=== PATIENT | male | born 1965 | race Caucasian/White ===

== ENCOUNTER 2016-09-17 13:38 | Inpatient (IN) | payer OTHER, SELFPAY ==
[~2016-09-17] VITALS: Ht 188 cm; Wt 128.0 kg
--- NOTE | ~2016-09-17 | TXPLANREV ---
"PATIENT: RED MUSTAFA | | [facility] UNIT #: [id number] | [address] AGE/SEX: 50 M : 61 | [address] | [place] [address] ADMIT/REG DATE: 09/17/16 | [facility] | Treatment Plan/Staffing Review Date: 01 OCT 2016 Treatment plan was reviewed and determined appropriate as written: TREATMENT PLAN IS APPROPRIATE WRITTEN. Treatment plan was reviewed and the following changes/addition/deletions are necessary: TREATMENT PLANS CREATED TO FOCUS ON RELAPSE/FAMILY OF ORIGIN ISSUES AND GUILT AND SHAME FOR PAIN CLIENT HAS CAUSED HIS . Discharge plans were reviewed and determined appropriate as previously documented: NO DISCHARGE PLANS HAVE BEEN DOCUMENTED. Discharge plans were reviewed and determined to be as follows: TENTATIVE DISCHARGE DATE IS 15 OCT 2016. Other pertinent issues discussed during this staffing review include: CLIENT APPEARS TO BE LEARNING MORE ABOUT ADDICTION AND IS MORE REALISTIC ABOUT THE NEGATIVE CONSEQUENCES IT HAS CAUSED IN HIS LIFE AND HIS MARRIAGE. CLIENT HAS SUBMITTED HIS STEP ONE, STINKIN THINKIN AND BOUNDARY PACKETS, BUT HAS NOT PROCESSED THEM WITH STAFF. CLIENT WILL BE WORKING ON RELAPSE AND FEELINGS LETTERS. HIS IS HERE TODAY AND THEY ARE ATTENDING FAMILY EDUCATION CLASSES. Staff Present: CARMITA BRANCH PRIMARY COUNSELOR: ADDIE HUDSON [facility] Client Signature Counselor Signature Date Time "
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
--- NOTE | ~2016-09-17 | TXPLANREV ---
"PATIENT: RED MUSTAFA | | [facility] UNIT #: [id number] | [address] AGE/SEX: 50 M : 61 | [address] | [place] [phone] ADMIT/REG DATE: 09/17/16 | [facility] | Treatment Plan/Staffing Review Date: 08 OCT 2016 Treatment plan was reviewed and determined appropriate as written: TREATMENT PLAN IS APPROPRIATE WRITTEN. Treatment plan was reviewed and the following changes/addition/deletions are necessary: ADDITIONAL TX PLANS WERE CREATED TO ADDRESS FEELINGS, RELAPSE AND UNRESOLVED HURT AND ANGER. Discharge plans were reviewed and determined appropriate as previously documented: YES, APPROPRIATE PREVIOUSLY DOCUMENTED. Discharge plans were reviewed and determined to be as follows: CLIENT WILL DISCHARGE 10/15/16 AND BE REFERRED BACK TO [facility]. Other pertinent issues discussed during this staffing review include: CLIENT WORKING ON FEELINGS LETTERS, MY CHANGE PLAN AND RELAPSE WARNING SIGNS. HIS WILL BE HERE TONIGHT TO PROCESS FEELINGS LETTERS. CLIENT'S NEXT APPOINTMENT AT [facility] IS 10/17 AT 10A. Staff Present: MARILEE AMBROCIO PRIMARY COUNSELOR: ADDIE HUDSON [facility] Client Signature Counselor Signature Date Time "
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
--- NOTE | ~2016-09-17 | INDIVTXPLN ---
"PATIENT: RUDDY MUSTAFA | | [facility] UNIT #: [id number] | [address] AGE/SEX: 50 M : 61 | [address] | [place] [address] ADMIT/REG DATE: 09/17/16 | ROOM: [facility] LOC: ADTC | ADTC | Individualized Treatment Plan Date: 08 OCT 2016 Problem Statement/Issue Identified: RUDDY NEEDS TO GAIN AN UNDERSTANDING OF POTENTIAL RELAPSE TRIGGERS/ISSUES AND DEVELOP A PLAN AND SUPPORT SYSTEM TO DEAL WITH THEM THEY ARISE. Goal: RUDDY WILL BE WILLING TO GET A SPONSOR AND BEGIN TO DEVELOP A HEALTHY SUPPORT SYSTEM IN AA/NA. Objectives/Activities to achieve goal: 1. Ruddy will complete MY CHANGE PLAN/RELAPSE WARNING SIGNS identifying steps he is willing to take to keep himself safe and build a strong foundation in his recovery. He will process his work with his primary counselor and selected pages with this peer group. Due Date: Complete: Incomplete: 2. Ruddy will be willing to select an approprite sponsor and begin to build a relationship with him and other men while he is in treatment. Due Date: Complete: Incomplete: 3. Ruddy will be willing to lead an AA/NA MEETING while he is in treatment. Due Date: Complete: Incomplete: Client signature Date Counselor signature Date Outcome/Measurement of Progress Towards Goal: Counselor's signature Date "
--- NOTE | 2016-09-17 15:29 | NUR ---
ADMISSION NOTE Rights/Responsibilities: Copy given and explained to client. Signed and accepted by client. Client oriented to physical lay out of the ADTC unit, given Big Book and admission packet. A Alejandro was assigned. Eligio Client is a 50yr old male. Brought to tx by [facility] staff, where he has been for the last 14 days. Lives in [place], [place]. DOC Meth, last used 08/29/16, two grams daily. Allergies: Bee's, Meds: nurse has them. S/O will participate in tx. Was searched no contraband found. Initial paperwork given and guidelines gone over. Doctor has been notified.
--- NOTE | 2016-09-17 19:17 | NUR ---
Education: 1 Hour. Client attended "Communications" lecture presented by staff.
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
--- NOTE | 2016-09-17 19:44 | NUR ---
FAMILY CONTACT: Talked with client's who identifies herself as "older and retired." She talked about client's upbringing stating that his bio parents were never but had three children together. said client has had on/off contact with his mom over the years. She had a total of 11 children and was alcoholic. She in 2011 (?) while client was in halfway. She said he has developed a relationship with his bio dad, but didn't have contact with him for years. She is wanting to be involved in his treatment. I explained that she will receive a packet and questionaire in the mail later in the week. We will talk again early next week to go over details.
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
--- NOTE | 2016-09-17 23:37 | NUR ---
Client attended N.A.Meeting and went on a walk for rec. SE: EMDR with counselor
--- NOTE | 2016-09-17 23:42 | NUR ---
Client did initial paperwork for the duration of programming and finally attended the community meeting. SE: Coming into treatment.
--- NOTE | 2016-09-18 04:24 | NUR ---
Bed note: Client was in bed with eyes closed with no distress at all bed checks except second check he was in rest room
--- NOTE | 2016-09-18 11:30 | NUR ---
GROUP 1.5 HRS. 1:9 Client was oriented to purpose and rules of group. He shared that he thought he was going to do IOP and was upset with PO who advised him that he needed to come to res. treatment. Client identified that he is "institutionalized" and has served 18 years and then another 4 years. Discussion included issues of discharge planning and fear of leaving. This client encouraged peer to take action to have his probation transferred.
--- NOTE | 2016-09-18 15:59 | NUR ---
Tech Note: Client participated in light stretching for morning exercise. Client stated that he is working on, "How to Get Started in Ttreatment."
--- NOTE | 2016-09-18 17:13 | NUR ---
Relapse Prevention, 06/22, 1.0 hours, Client attended and actively participated in relapse prevention education which focused on high risk situations.
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
--- NOTE | 2016-09-18 19:24 | NUR ---
Education note: 1 hour watched video "enabler".
--- NOTE | 2016-09-18 19:35 | NUR ---
education note: 1 hour lecture by [facility] on hiv/aid/std. plus clients wwere tested for HIV.
--- NOTE | 2016-09-18 22:28 | NUR ---
Tech note: Client did not walk for rec as he was waiting for HIV results. He participated in guided meditation and attended an onsite AA meeting.
--- NOTE | 2016-09-19 05:35 | NUR ---
Bed note : Client was in bed with eyes closed and no movement at all bed checks.
--- NOTE | 2016-09-19 09:38 | NUR ---
FAMILY CONTACT: Talked with client's who scheduled a FAMILY SESSION 09/27 and commited to start FAMILY EDUCATION on that date as well. She also expressed concerns that client was assigned a "packet" by parole that he is required to complete and return by mid October. client is scheduled to be here until 10/15. I explained that we do not allow client's to have outside materials while they are here as we keep them busy with treatment focused assignments. I futher explained that he may have to discharge, complete this assignment and take care of medical issues he has mentioned, then we would try to bring him back in as soon as he has taken care of those responsibilities. She didn't like the sound of that so was going to try to continue to reach the PO. I have a release to him as well and will attempt to talk with him later in the week.
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
--- NOTE | 2016-09-19 13:47 | NUR ---
Tech Note: Outside speaker Jorge Leigh spoke at 1300. Client attended and is working on Getting Started.
--- NOTE | 2016-09-19 17:27 | NUR ---
SPIRITUAL EDUCATION 1 HR. Topics today were clarifying the differences between spirituality and sikh, and playing the spiritual challenge game where they are asked thought provoking open ended questions. It is meant to inspire spiritual line of thought.
--- NOTE | 2016-09-19 22:50 | NUR ---
Tech Note : Client participated in rec by playing catch phrase and attended an onsite NA meeting.
--- NOTE | 2016-09-19 23:42 | NUR ---
Education: 1 Hour. Client attended "Disease Concept" presented by counselor.
--- NOTE | 2016-09-20 05:42 | NUR ---
Bed Note: Client was motionless with eyes closed at all bed checks.
--- NOTE | 2016-09-20 13:37 | NUR ---
PEER REVIEWS 1 HR: Clt participated in peer reviews and took a risk to give open and honest feedback to those receiving a review. The last half hour of group clients talked about loved ones and dying.
--- NOTE | 2016-09-20 15:39 | NUR ---
Tech Note: Client participated in light stretching for morning exercise. Client stated that he is working on reading the Big Book.
--- NOTE | 2016-09-20 16:06 | NUR ---
Education 1 Hour: Client heard from a member of the recovery community who shared his experience, strength and hope.
--- NOTE | 2016-09-20 16:33 | NUR ---
Step Education 1 hr/ Focus was on step 12 "having had a spiritual awakening", each person completed a set of questions on paper and then we discussed. This client participated.
--- NOTE | 2016-09-20 19:45 | NUR ---
Tech note: client was off the unit for [employer] banquet and speaker event
--- NOTE | 2016-09-21 12:56 | NUR ---
INDIVIDUAL SESSION 1 HR: Reviewing client's BPS. Again, client is getting in to a lot of story-telling and wants to go in to detail with all the trauma he has experienced. Can't tell if he is exagerating or playing it down? either way, he seems to get a bird off it. I encouraged him to consider writing some FEELINGS LETTERS. He didn't commit either way but heard that he will need to be willing to let go of these memories to be able to move on. He is on disability for PTSD/BiPolar. Assigned STEP ONE.
--- NOTE | 2016-09-21 14:04 | NUR ---
Tech Note: Client went with group on an outdoor walk. Client is working on the Big Book.
--- NOTE | 2016-09-21 16:08 | NUR ---
Education Note: Client watched "How to Sabotage Your Treatment"
--- NOTE | 2016-09-21 16:09 | NUR ---
Education Note: Client watched "How to Sabotage Your Treatment"
--- NOTE | 2016-09-21 16:33 | NUR ---
PEER REVIEWS 1.0 HR: Clt participated in peer reviews and took a risk to give open and honest feedback to those receiving a review.
--- NOTE | 2016-09-21 22:59 | NUR ---
TECH NOTE: Client participated in reading [employer] watched tv/movies. SE: music
--- NOTE | 2016-09-22 04:08 | NUR ---
Bed Note: Clt lay motionless in bed with eyes closed showing no distress at all bed checks.
--- NOTE | 2016-09-22 15:32 | NUR ---
Tech Note: Client is working on Step 1 and had a visitor.
--- NOTE | 2016-09-22 22:58 | NUR ---
TECH NOTE: Client played a game for REC, attended off site AA meeting, watched TV/movies. late for REC, was in shower SE: visits
--- NOTE | 2016-09-23 04:51 | NUR ---
Bed Note: Clt lay motionless in bed with eyes closed showing no distress at all bed checks.
--- NOTE | 2016-09-23 15:42 | NUR ---
Tech Note: Client participated in Big Book and stated that he is working on Step One. Client attended spiritism and received a visitor.
--- NOTE | 2016-09-23 23:03 | NUR ---
Tech Note: Client attended A.A.Panel and participated in community clean. Client also attended the SPRAY DRY OPERATOR Meeting. SE:GEOVANNI
--- NOTE | 2016-09-24 04:53 | NUR ---
Bed Note: Client was motionless with eyes closed at all bed checks.
--- NOTE | 2016-09-24 10:26 | NUR ---
Tech notes: Client is working on Step 1
--- NOTE | 2016-09-24 10:48 | NUR ---
Tech note: At breakfast this morning clients plate was over flowing plus yogert, 2 chocolate milks, one white milk, juice. Being a diebetic he should watch how much and what he eats.
--- NOTE | 2016-09-24 15:46 | NUR ---
Morning Group, 1.5 hours, 06/23 Clients all participated in 2 family sculptures with role-playing, feedback, and how they related.
--- NOTE | 2016-09-24 16:04 | NUR ---
RECOVERY EDUCATION 1 HR. Todays topic was on denial; good, bad, and levels, life problems being 85 percent of recovery, and distorted thinking patterns that can keep us stuck.
--- NOTE | 2016-09-24 16:32 | NUR ---
Education note: Client watched video "Nightmare on [address] [facility]"
--- NOTE | 2016-09-24 17:08 | NUR ---
INDIVIDUAL SESSION 1 HR: Looked through client's GETTING STARTED packet and marked several pages for him to share and process. Client looked over INITIAL INDIVIDUALIZED TREATMENT PLAN/PROBLEMS NEEDS LIST. Client verbalized understanding and signed all copies. Additional copies were made for his journal. Client did express concerns about confrontation by staff on maintaining healthy boundaries in the meetings. Client said felix wright got confronted for "war stories" and talking too much. I repeated some of the same stuff I shared with him last week about stort-telling, etc. and encouraged him to keep it brief and simple. He was assigned BOUNDARIES/NIMA THINKIN. Session 09/27 with his .
--- NOTE | 2016-09-24 17:44 | HP ---
ADMIT: 09/17/2016 RM/LOC: [facility] MR#: [id number] [address] [facility] [address] [place] [phone] RED MUSTAFA [address] [place] [phone] History and Physical SEX: M AGE: 50 : 1965 DATE OF SERVICE: INDICATION FOR HOSPITALIZATION: Red is a 50-year-old white male, admitted to residential level treatment at [facility] on 09/17/2016. He is admitted to treatment from [facility]. He recently had dirty UAs for methamphetamines while on parole for distribution of meth after four years in skilled nursing. He was subsequently referred to residential level treatment. 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 Please see his records for those details. Red's drug of choice on admission is methamphetamines. He first started using meth at 44 years of age. He states he initially used it daily and has been doing it IV ever since. He states he used about one teener twice a day. His last use was a couple weeks ago. He used it on weekends while he was in skilled nursing for four years. He states he was tested and is positive for hep C, and was previously treated. Second drug of choice is heroin. He first used heroin in 1987 while in skilled nursing. He states he did it IV. He states he mainly used it on weekends in skilled nursing. His heaviest use was two eight balls a day in 2010 when he as a result of an overdose. He states from 2010 to 2011, he used at least a teener a day IV. His last use was on 05/29/2012. He states the last time he used, he [place]. Third drug of choice is alcohol. He states when he was young, he drank heavily but would not go into details. He states in his 20s and 30s, he would drink frequently. States, in 2009, he was drinking up to 30 beers on weekends and a half a jar [place]tuck. He states in 2009, he quit drinking, and he has not really drank much since. He has only drank couple times. He denies fourth drug of choice. He admits to using marijuana when he was around 12. He used LSD three times and likely was inadvertently slipped PCP. PAST MEDICAL HISTORY: Operations include appendectomy and lipoma excisions. Illnesses include hepatitis C, chronic low back pain, hypertension, hypothyroidism, BPH, overactive bladder, obesity, and diabetes. MEDICATIONS: On admission include: 1. Synthroid 125 mcg daily. 2. Loratadine 10 mg daily. 3. Lisinopril/HCT 20/25 one daily. 4. Detrol LA 2 mg b.i.d. 5. Naproxen 500 mg b.i.d. 6. Sertraline 100 mg b.i.d. 7. Lantus 46 units b.i.d. 8. Gabapentin 400 mg two tabs t.i.d. 9. Prazosin 2 mg three at bedtime. ADMIT: 09/17/2016 RM/LOC: [facility] MR#: [id number] [address] [place] [phone] RED MUSTAFA [address] [phone] History and Physical SEX: M AGE: 50 : 1965 10.Amoxil. He is completing routine course therapy. ALLERGIES: HONEY BEE VENOM. SOCIAL HISTORY: Is that of a 50-year-old white male. He has one child with an ex-girlfriend. He is currently . Smokes a pack of cigarettes daily. He has been in and out of skilled nursing and alf numerous times. He has had lengthy prior legal histories including distribution of meth with his current parole. FAMILY HISTORY: Coronary artery disease in his mother. Hypertension in mother and brother. Diabetes in two sisters. His father and mother were alcoholics. He states he has brothers and sisters who are alcoholics and drug addicts. REVIEW OF SYSTEMS: Remarkable for his chronic back pain and diffuse arthritis. Remainder of review of systems is negative. PHYSICAL EXAMINATION: VITAL SIGNS: He is alert, obese white male, appears his stated age. VITAL SIGNS: Currently unavailable in the chart at this time. HEENT: Pupils are reactive. Extraocular muscles are intact. TMs normal. Throat unremarkable. NECK: Without nodes or masses. HEART: Regular without murmur. LUNGS: Clear. ABDOMEN: Obese, soft, nontender, benign. and RECTAL: Deferred. EXTREMITIES: Reveal no clubbing, cyanosis, edema, or tracks. NEURO: Grossly normal to light touch, strength, and DTRs. ASSESSMENT: 1. Stimulant use disorder, severe. 2. Opiate use disorder, severe. 3. Alcohol use disorder, on full sustained remission. 4. Tobacco use disorder. 5. Diabetes mellitus type 2. 6. Benign prostatic hypertrophy. 7. Overactive bladder. 8. Hepatitis C. ADMIT: 09/17/2016 RM/LOC: [facility] MR#: [id number] [address] [place] [phone] RED MUSTAFA [address] [place] [phone] History and Physical SEX: M AGE: 50 : 1965 9. Chronic low back pain. 10.Hypothyroidism. 11.Increased risk of human immunodeficiency virus and other blood-borne pathogens. PLAN: Insulin doses were adjusted. Accu-Chek monitoring and sliding scale were ordered. Home medications were reviewed. We will continue his current regimen. Proceed with drug and alcohol abuse dependency treatment and counseling, diabetic teaching, and dietary monitoring. We will proceed with further evaluation and management based on the course during hospitalization. We will offer HIV testing given his increased risk of exposure with repetitive IV drug use. Please see his hospital record for the details. Arias Childers MD/ alessia JOB #: [id number] CC: Arias Childers, Attending Physician . [facility], Family Physician
--- NOTE | 2016-09-24 18:46 | NUR ---
Education: 1 Hour. Client attended "Feelings" lecture given by staff.
--- NOTE | 2016-09-24 22:16 | NUR ---
Tech note: Client participated in rec by playing [employer] outside. Client attended an onsite NA meeting.
--- NOTE | 2016-09-25 04:18 | NUR ---
BED NOTE: client was in bed, motionless with eyes closed all three bed checks.
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
--- NOTE | 2016-09-25 16:19 | NUR ---
Relapse Prevention, 06/20 ratio, 1.0 hours, Client attended and actively participated in relapse prevention education which focused on personal reactions to high risk situtations such as personal reactions vs. personal responses, addictive thinking, irresponsible thinking, addictive behavior, irresponsible behavior, instant gratification, and emotional consequences to thoughts and actions.
--- NOTE | 2016-09-25 16:41 | NUR ---
Tech Note: Client listened to speaker Arias share his experience, strength and hope. Client is working on Step 1.
--- NOTE | 2016-09-25 19:33 | NUR ---
Education : 1 hour lecture given by counselor on feelings.
--- NOTE | 2016-09-25 22:28 | NUR ---
Tech note: Client played catchphrase for rec, participated in guided meditation and attended AA meeting. SE:ARIANE canales
--- NOTE | 2016-09-26 04:26 | NUR ---
Bed note: client was in bed with eyes closed and no distress at all bed checks.
--- NOTE | 2016-09-26 09:54 | NUR ---
Tech note: At breakfast this morning client took much less food than Saturday as in normal portion and only one trip threw the line.
--- NOTE | 2016-09-26 10:06 | NUR ---
Colleen notes: Client is working on Step 1 and Amber Kennedy
--- NOTE | 2016-09-26 11:39 | NUR ---
AM GROUP 10:1/1.5 HR: Client and peers participated in the ORIENTATION OF TWO NEW PEERS TO GROUP GUIDELINES, GOALS AND OBJECTIVES. All were involved as three group members processed their work from assignments. Multiple members related, several shared from their own experiences providing support and encouragement. This client processed PAGES 3 & 7 from his STEP ONE. Client has been writing extensively and goes in to great detail with his examples. After client did his first page, he was encouraged to skim the second page and give us the highlights. This went somewhat better and quicker. Client identified about 10 defensive behaviors but his top three were explaining, justifying and glaring.
--- NOTE | 2016-09-26 11:43 | NUR ---
INDIVIDUAL SESSION 1HR: Talked with client about working on keeping things (responses) simple/brief. Client really struggles to understanding this but is working on it. Also talked with client about his need to really follow the dietary suggestions that the office chair assembler has given him to continue to reduce and stablize his blood sugar. Client verblized willingness and said numbers have dropped since the early part of the week.
--- NOTE | 2016-09-26 13:31 | NUR ---
Education note: Client watched video
--- NOTE | 2016-09-26 16:23 | NUR ---
SPIRITUAL EDUCATION 1 HR. Todays topic was the ADDICTIVE SELF vs. SPIRITUAL SELF. We held discussion on who we are in our addiction vs who we are in recovery and contrasted the two.
--- NOTE | 2016-09-26 18:36 | NUR ---
Education: 1 hour lecture on self esteem given by counselor
--- NOTE | 2016-09-26 22:58 | NUR ---
Client did beads for rec and attended N.A.Meeting. SE: All Day
--- NOTE | 2016-09-27 04:03 | NUR ---
Bed note: client was in bed with eyes closed and no distress at all bed checks.
--- NOTE | 2016-09-27 11:30 | NUR ---
AM GRP 1.5 HRS, Ratio 1:10/ Clt brought up an issue surrounding the way he talks, acts and thinks, stating he has been on the streets so long, it's hard for him to change. He heard it starts w/ changing the way he talks and acts to people, and his thinking will eventually change too.
--- NOTE | 2016-09-27 14:04 | NUR ---
FAMILY SESSION 1 HR: Client attended with his . Both were active throughout. Some of the focus was on client's frustration with confrontation he has received in group settings for rambling on and on. For this client, it seems to be part of his process to go over detail after detail. In group, it takes too much time. very supportive, but lacks knowledge and understanding of the disease and the personality. Gave her NIMA SANCHEZIN as client is working on this as well. She will attend FAMILY ED with client.
--- NOTE | 2016-09-27 15:32 | NUR ---
Tech Note: Client participated in Spiritual Enrichment in the morning and went for an outdoor walk after lunch. Client stated that he is working on Step One.
--- NOTE | 2016-09-27 16:18 | NUR ---
Education 1 Hour: Client heard a presentation on cross addiction.
--- NOTE | 2016-09-27 17:00 | NUR ---
FAMILY EDUCATION 3 HRS. Client was accompanied by his . They took part in the discussion on the disease concept. Client shared chemical history and the consequences.
--- NOTE | 2016-09-27 23:15 | NUR ---
TECH NOTE: Client did [employer] bookmarks for REC, participated in guided meditation, and attended AA meeting. SE: seeing his niece
--- NOTE | 2016-09-28 01:22 | NUR ---
1 HR EDUCATION: Client watched a video "Say Yes to Life" by Father Ketan Thornton
--- NOTE | 2016-09-28 04:46 | NUR ---
Bed Note: CLt lay motionless in bed with eyes closed showing no distress at all bed checks.
--- NOTE | 2016-09-28 13:42 | NUR ---
Morning Group, 06/13, 1.5 hours, Client attended and actively participated in group session. Client shared some of his childhood and offered feedback to some of his peers.
--- NOTE | 2016-09-28 14:58 | NUR ---
PEER REVIEWS 1.5 HRS: Clt participated in peer review process and took a risk to give open and honest feedback.
--- NOTE | 2016-09-28 16:35 | NUR ---
Tech Note: Clt watched "Relapse" for afternoon video. Dinht is working on [employer].
--- NOTE | 2016-09-28 22:57 | NUR ---
Tech note: Client watched tv and movies.
--- NOTE | 2016-09-29 05:26 | NUR ---
Bed note : Client was in bed motionless with eyes close at all bed checks.
--- NOTE | 2016-09-29 15:47 | NUR ---
Tech Note: Client attended A.A.Meeting at [facility] and [place] and then helped with the clubhouse cleaning, ate lunch, and listened to a speaker. Client is working on Pamphlet on boundaries. Client had visit
--- NOTE | 2016-09-29 20:52 | NUR ---
tech note: Client played a game for recreation & attended offsite AA meeting.Client talked on the phone & watched tv. SE: WALTER.
--- NOTE | 2016-09-30 05:27 | NUR ---
Bed note: Client was in bed motionless with eyes closed at all bed checks.
--- NOTE | 2016-09-30 16:24 | NUR ---
TECH NOTE: Client participated in Chapter 5 of Big Book study, attended confucianist, watched tv/movies and had visitors.
--- NOTE | 2016-09-30 23:51 | NUR ---
tech note: client attended AA Panel & CAR SEAT MAKER. Client participated in Community Clean. Client has 30 days clean. SE: visit
--- NOTE | 2016-10-01 04:42 | NUR ---
Bed Note: Clt lay motionless in bed with eyes closed showing no distress at all bed checks.
--- NOTE | 2016-10-01 11:16 | NUR ---
Colleen notes: Client is working on BB and mtg with elina
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
--- NOTE | 2016-10-01 15:42 | NUR ---
Education note: Client attended speaker for education, [place] on Tobacco
--- NOTE | 2016-10-01 18:20 | NUR ---
Education: 1 hour lecture given by counselor on "forgiveness"
--- NOTE | 2016-10-01 20:53 | NUR ---
FAMILY EDUCATION 3 HRS. GROUP 2 HRS. 1:5 Client was accompanied by his . They took part in the discussion on the family roles, codependency and detachment. Client and offered feedback to peers and families who processed feelings letters. All discussed relationships with dad. Client shared that he has not see seen his 32 yr. old son since he was 1.
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
--- NOTE | 2016-10-01 22:39 | NUR ---
Tech note: Client attended family group SE; All day
--- NOTE | 2016-10-02 04:18 | NUR ---
Bed note: Client was in bed with eyes closed and no distress at all bed checks.
--- NOTE | 2016-10-02 12:58 | NUR ---
A.M. 1.5 hr res group/ratio 1:10/ Group heard a getting started and a goodbye letter to addiction. Discussed having resentment towards self, how kids are forgiving, and we oriented 3 new group members. This client gave feedback to peers sharing.
--- NOTE | 2016-10-02 13:28 | NUR ---
Tech Note: Client participated in light stretching for morning exercise and went for an outdoor walk in the afternoon. Client stated that he is working on, "Hypertension."
--- NOTE | 2016-10-02 13:38 | NUR ---
Education One Hour: Client heard a presentation on Sexually Transmitted Disease.
--- NOTE | 2016-10-02 20:31 | NUR ---
education note: 1 hour lecture by counselor on" what dove are you willing to pay"
--- NOTE | 2016-10-02 22:59 | NUR ---
Tech note: Client attended the Alumni meeting, participated in guided meditation and attended an onsite AA meeting. SE; peer mauri
--- NOTE | 2016-10-03 04:58 | NUR ---
Bed note: Client was in bed with eyes closed and motionless at all bed checks.
--- NOTE | 2016-10-03 10:42 | NUR ---
Colleen notes: Client is working on Hypertension and mtg with elina
--- NOTE | 2016-10-03 12:38 | NUR ---
Education note: Client had education by [facility]
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
--- NOTE | 2016-10-03 15:27 | NUR ---
Met with patient to review diabetic diet. Patient has made some changes and decrease the amount he is eating. Blood sugars are improving. Provided patient with a meal plan and additional ediucation resources. Pt verbalizes understanding.
--- NOTE | 2016-10-03 17:29 | NUR ---
SPIRITUAL EDUCATION 1 HR. Todays topics were orienting newcomers, and taking a look at Kwan Sol's 5 SECRETS TO SUCCESS which include a look at the miracles of the human body as blessings.
--- NOTE | 2016-10-03 20:57 | NUR ---
education: 1 hour video on unresolved anger and group discussion with counselor
--- NOTE | 2016-10-03 22:15 | NUR ---
Tech note: Client worked on beaded project and attended an onsite NA meeting. SE; NA meeting
--- NOTE | 2016-10-04 04:05 | NUR ---
Bed note: Client was in bed with eyes closed and no distress at all bed checks.
--- NOTE | 2016-10-04 10:35 | NUR ---
Tech Note: Client participated in Spiritual Enrichment. Client stated that he is working on, "Shame Faced" and writing a Feelings Letter.
--- NOTE | 2016-10-04 12:47 | NUR ---
Group 1.5 Hr Ratio 1:10/Topics today were a relapse prevention, a feelings letter, a getting started and two step one's. Client shared his step one as to how he compromised his values and people he hurt. Client did a good job.
--- NOTE | 2016-10-04 13:40 | NUR ---
Education 1 Hour: Client heard a presentation from a member of the recovery community who shared his experience, strength and hope.
--- NOTE | 2016-10-04 16:22 | NUR ---
step education 1 hr/ Focus was on step 2, handed out some questions they completed on paper and then opened it up for discussion. This client participated.
--- NOTE | 2016-10-04 23:57 | NUR ---
Tech Note: Client attended Guided Meditation and A.A.Meeting. Client told someone to put their phone away on unit! Good job SE: Niece attended family/Got a sponsor today.
--- NOTE | 2016-10-05 04:26 | NUR ---
Eduction: 1 Hour. Client attended "Unresolved Anger" video & discussion presented by staff.
--- NOTE | 2016-10-05 13:00 | NUR ---
PEER REVIEWS 1.5 HRS: Clt participated in peer review process and was able to give open and honest feedback to those receiving a review.
--- NOTE | 2016-10-05 13:35 | NUR ---
INDIVIDUAL SESSION 1 HR: Client processed from several assignments to clean them up. Client completed STEP ONE, HURTS AND ANGERS LIST, DISTORTED THINKING (FROM MARILEE'S CLASS), & FEELINGS LETTER to his . he did well on all assignments. Client got very emotional when he processed his letter to his . Client sounds very serious about recovery, but easily falls back in to care home mentality. Staff asked him several times, who made you the adventure therapist. Client seems to realize that he is falling back, but not until he is confronted on it. Client will focus on FEELINGS LETTERS to his parents and son over the weekend.
--- NOTE | 2016-10-05 16:28 | NUR ---
Tech Note: Client participated in group walk for exercise and watched "Recovery Issues Part 3" for afternoon video. Client is working on Shame Face and Feelings Letters.
--- NOTE | 2016-10-05 22:51 | NUR ---
TECH NOTE: Client participated in reading guidelines and watched tv/movies. SE: finishing his feeling letter
--- NOTE | 2016-10-06 04:12 | NUR ---
Bed Note: Clt lay motionless in bed with eyes closed showing no distress at all bed checks.
--- NOTE | 2016-10-06 16:08 | NUR ---
Tech Note: Client attended NA Panel and is working on Feelings Letters and Shame Face. He had a visitor.
--- NOTE | 2016-10-06 20:31 | NUR ---
Tech note: Clt played a game for recreation and attended offsite AA mtg. Watched tv, played cards and used phone. Clt talked with male peer who had threatened to leave tx and was late to rec & AA mtg. SE was all day
--- NOTE | 2016-10-07 04:40 | NUR ---
Bed Note: Clt lay motionless in bed with eyes closed showing no distress at all bed checks.
--- NOTE | 2016-10-07 15:59 | NUR ---
Tech Note: Client participated in Big Book Study. Client stated that he is working on, "Shame Faced" and writing Feelings Letters. Client attended islam in the morning and received a visitor in the afternoon.
--- NOTE | 2016-10-07 22:58 | NUR ---
Tech Note: Clt attended AA panel, optional DIRECTOR CLIENT SERVICES mtg and walked out of mtg after it started stating it was to hot in the room because of the number of people there. Clt played game with peer and watched tv. SE was AA panel
--- NOTE | 2016-10-08 04:41 | NUR ---
Bed Note: Clt lay motionless in bed with eyes closed showing no distress at all bed checks.
--- NOTE | 2016-10-08 10:19 | NUR ---
Tech notes: Client is working on Shame face
--- NOTE | 2016-10-08 11:30 | NUR ---
Morning Group, 06/12 ration, 1.5 hours, Client attended and actively participated in group discussion. Client offered feedback to his peers.
--- NOTE | 2016-10-08 13:32 | NUR ---
Education: Client attended education by Franchesca on Infection prevention.
--- NOTE | 2016-10-08 16:00 | NUR ---
Recovery 101 1 hr/ Clients all were asked to share what they worked on in treatment or past treatments that really helped them and/or their experience with working an AA/NA program of recovery-what went well. This client was attentive.
--- NOTE | 2016-10-08 18:13 | NUR ---
Education: 1 Hour. Client attended "Adult Children of Alcoholics" lecture presented by staff.
--- NOTE | 2016-10-08 20:50 | NUR ---
FAMILY GROUP 4:1/ HR: Client, peers and attending family members heard two families process FEELINGS LETTERS. Much of the focus became family of origin issues and rebuilding trust. Everyone related, everyone shared and processed. This client attended with his . The two processed very powerful feelings letters. Both were tearful at times. Client was honest as he shared specific examples of his behaviors, many nights gone from their home, ignoring her attempts to reach him. Both were active throughout with feedback and encouragement for peers and their families.
--- NOTE | 2016-10-08 23:38 | NUR ---
tech note: Client attended Family. Client was thanked by tech for not playing along with male peer who was disruptive & trying to talk with him during the client meeting. SE: Family.
--- NOTE | 2016-10-09 04:33 | NUR ---
BED NOTE: Client was in bed, motionless with eyes closed all three bed checks.
--- NOTE | 2016-10-09 11:41 | NUR ---
A.M. 1.5 hr res group/ratio 1:10/ Assignments shared were a how to get started and a letter to self. Discussion focused on resenting self, forgivness, feeling afraid and out of place and believing in self. This client was mostly quiet.
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
--- NOTE | 2016-10-09 16:42 | NUR ---
Tech Note: Client participated in Nutritional Services presentation and is working on Feelings Letters.
--- NOTE | 2016-10-09 22:43 | NUR ---
Education: 1 hour lecture given by counselor on co-dependency
--- NOTE | 2016-10-09 22:55 | NUR ---
Tech note: clients played catchphrase for rec, participated in guided meditation and attended AA meeting SE: all day
--- NOTE | 2016-10-10 04:38 | NUR ---
bed note: client was in bed with eyes closed and motionless at all bed checks.
--- NOTE | 2016-10-10 09:56 | NUR ---
Tech notes: Client is working on Fl's
--- NOTE | 2016-10-10 13:07 | NUR ---
AM GROUP 9:06/03 1.5 HR: Client and peers participated in ORIENTATION OF TWO NEW PEERS TO GROUP GUIDELINES, PURPOSE, GOALS AND OBJECTIVES. Group heard several process assignments/issues. Much of the focus was on how deeply kids are affected by a parent"s chemical use, even if the kids don't directly see it. This client was late to join the group, stating that he was in the restroom. Client later explained that he has fissures and thus can't bird a bowel movement without creating more damage and pain. I validated client but explained that he needs to forego a cigarette and get this taken care of prior to programing. I explained that he will likely not be allowed to enter group late by another counselor.
--- NOTE | 2016-10-10 13:16 | NUR ---
Education note: Client attended educational speaker Haile Seymour
--- NOTE | 2016-10-10 17:34 | NUR ---
SPIRITUAL EDUCATION 1 HR. Today we used music to invoke discussion, symbolize how it can be either positive spirituality or negative spirituality, and discussed the feelings. We used one song that depicted addiction, one that talked about recovery, and since we are close to Mother's Day, one that depicted addiction in parents and forgiveness.
--- NOTE | 2016-10-10 18:20 | NUR ---
Education: 1 Hour. Client attended "Boudaries" lecture given by staff.
--- NOTE | 2016-10-10 22:59 | NUR ---
Tech Note: Client played a game for rec, and attended The on unit N.A.Meeting. SE: Chairing N.A.Meeting
--- NOTE | 2016-10-11 04:30 | NUR ---
Bed Note: Client was in bed with eyes closed and motionless at all bed checks.
--- NOTE | 2016-10-11 11:30 | NUR ---
AM GRP 1.5 HRS, Ratio 1:11/ Clt was not engaged in grp much. He continually got up and stood against the wall, and the only thing he offered was when asked where he is today and he stated he's here in [place].
--- NOTE | 2016-10-11 16:00 | NUR ---
step education 1 hr/ Focus was on step 3 of the 12 steps Made a decision to turn our will and lives over to God. Each person were given questions to answer on paper and then to share and discuss. This client participated.
--- NOTE | 2016-10-11 18:17 | NUR ---
Education 1HR: Clt watched video called "Predator part 1" by Roosevelt Urias with staff present.
--- NOTE | 2016-10-11 23:14 | NUR ---
Tech Note: Client took a walk for rec and attended the A.A.Meeting. SE: A.A.Meeting
--- NOTE | 2016-10-11 23:24 | NUR ---
1:00 pm. Education Note: Client watched video "Inside the Addictive Personality"
--- NOTE | 2016-10-12 04:09 | NUR ---
Bed Note: Client was in bed and motionless at all bed checks.
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
--- NOTE | 2016-10-12 14:25 | NUR ---
PEER REVIEWS 1.5 HRS: Clt participated in peer review process and was able to give open and honest feedback to those receiving a review. 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
--- NOTE | 2016-10-12 15:44 | NUR ---
Tech Note: Client participated in group walk and watched "Marijuana" by Roosevelt Urias. Assignment being worked on is Feelings Letters.
--- NOTE | 2016-10-12 23:25 | NUR ---
Tech note: Client played games and watched movies. Client walked to an offsite AA meeting.
--- NOTE | 2016-10-13 04:03 | NUR ---
Bed note: Client was in bed with eyes closed and no distress at all bed checks
--- NOTE | 2016-10-13 16:58 | NUR ---
Tech Note: Client went to A.A.Meeting at [address]. Also had a visit. Client is working on ID's
--- NOTE | 2016-10-13 22:20 | NUR ---
Tech note: Client's were just starting to grill around 6pm so we did not have rec this evening. Client walked to an offsite AA meeting, played games and watched movies. SE; All day
--- NOTE | 2016-10-14 04:47 | NUR ---
tech note: client was motionless in no distress at all bed checks.
--- NOTE | 2016-10-14 17:45 | NUR ---
Tech Note: Client participated in Big Book study. Client attended orthodoxy. Client stated that he is working on, "Change Plan." Client received a visit.
--- NOTE | 2016-10-14 23:44 | NUR ---
tech note: Client participated in community clean. Client talked on the phone. Client was given luggage. SE: All day.
--- NOTE | 2016-10-15 04:25 | NUR ---
tech note: client was motionless in no distress at all bed checks.
--- NOTE | 2016-10-15 11:30 | NUR ---
Experiential Group 1.5 hr/ Clients all participated in looking at family dynamics and feelings through sculpturing and participated with feedback, relating and/or role-playing. This client gave some input and humor.
--- NOTE | 2016-10-15 14:01 | NUR ---
FINAL SESSION 1 HR: Client processed parts of MY CHANGE PLAN/RELAPSE WARNING SIGNS. Client has been thorough with this and appears genuine in his disire for change. Client recognizes that stuffing feelings and getting caught up with old friends again will be his downfall. Completed CONTINUED CARE PLAN & presented MEDALLION. Client has an appointment with his referring counselor at [facility] on 10/15.
--- NOTE | 2016-10-15 15:40 | NUR ---
DISCHARGE NOTE Client completed treatment and left the facility taking all personal belongings with him. Discharge instructions were reviewed and a signed copy provided to the client.
--- NOTE | 2016-11-26 12:53 | DS ---
ADMIT: 09/17/2016 RM/LOC: [facility] MR#: [id number] [facility] [address] [place] [id number] RED MUSTAFA [address] [place] [id number] General Discharge Summary SEX: M AGE: 50 : 1965 ADMISSION DATE: 09/17/2016 DISCHARGE DATE: 10/15/2016 INDICATION FOR HOSPITALIZATION: Red is a 50-year-old, , white male, admitted to residential level treatment at [facility] on September 16 after detox at [facility]. He had had numerous dirty UAs for methamphetamines while on parole for distribution for meth after for 4 years in correction. He additionally had a prior lengthy legal history. His drug of choice on admission was methamphetamines. Second drug of choice is heroin. Third drug of choice is alcohol. Please see his admission H and P for the details regarding his history of present illness, past medical history, physical exam, and assessment at the time of hospitalization. HOSPITAL COURSE: On admission, Red was admitted to our residential level treatment bishop. His home medications were continued, and medical management of his diabetes was initiated. Melatonin was ordered for sleep disorder. Sliding scale was continued. Diabetes teaching, and a 24-calorie ADA diet was initiated. Lantus dosing was confirmed at 46 units b.i.d. Later, Lantus was increased to 50 units b.i.d. Norvasc was added for his hypertension. Tucks pads were later ordered along with Anusol HC cream for his hemorrhoids. During treatment, Red's primary counselor assigned was Jose Fish. During treatment, he underwent individual and group therapy sessions on drug and alcohol abuse and dependency. Relapse triggers were identified, relapse prevention plan was outlined. Family issues were addressed during the family portion of his treatment program. He was overall accepting of substance abuse problems. He completed step 1 of Alcoholics Anonymous. There were no significant dense incidences during treatment. Reason for discharge was completion of residential level treatment goals. Aftercare recommendations include sponsor assignment, follow up of his mental health counselor, active AA and NA meeting involvement, and [facility]pc house placement in the event if he is unable to maintain sobriety. DISCHARGE MEDICATIONS: Include: 1. Synthroid 125 mcg once daily. 2. Lisinopril/HCT 20/25 once daily. 3. Loratadine 10 mg daily. 4. Detrol LA 2 mg b.i.d. 5. Naproxen 500 mg b.i.d. 6. Zoloft 100 mg b.i.d. 7. Lantus 50 units b.i.d. sliding scale insulin. 8. Norvasc 5 mg daily. 9. Prazosin 2 mg 3 at bedtime. 10.Gabapentin 400 mg 2 tabs t.i.d. 11.Melatonin 3 mg at bedtime. FINAL DIAGNOSES: Include: 1. Stimulant use disorder, severe. ADMIT: 09/17/2016 RM/LOC: [facility] MR#: [id number] [address] [id number] RED MUSTAFA [address] [place] [id number] General Discharge Summary SEX: M AGE: 50 : 1965 2. Opioid use disorder, severe. 3. Alcohol use disorder, severe in full sustained remission. 4. Tobacco use disorder. 5. Diabetes mellitus type 2. 6. Benign prostatic hypertrophy. 7. Overactive bladder. 8. Hepatitis C. 9. Benign essential hypertension. 10.Chronic low back pain. 11.Hypothyroidism. 12.Increased risk for blood borne pathogens along with antisocial personality traits rule out disorder. PROCEDURES: Include drug and alcohol abuse dependency treatment and counseling, diabetic teaching, and blood pressure management, and hypertensive therapy discussions. Please see his hospital records for the details. Arias Childers MD/ alessia JOB #: [id number] CC: Arias Childers MD, Attending Physician [facility], Family Physician
== END 2016-10-15 13:48 | disposition home or self-care (01) | DRG 895 ==
LOC: ADTC 13:59
PROVIDERS: ADMIT Family Medicine
PROC: HZ34ZZZ Individual Counseling for Substance Abuse Treatment, Interpersonal (ICD-10-PCS; principal; 2016-09-17)
PROC: HZ43ZZZ Group Counseling for Substance Abuse Treatment, 12-Step (ICD-10-PCS; principal; 2016-09-17)
DX: F15.20 Other stimulant dependence, uncomplicated (principal); I10 Essential (primary) hypertension; F11.20 Opioid dependence, uncomplicated; F10.21 Alcohol dependence, in remission; F17.210 Nicotine dependence, cigarettes, uncomplicated; E11.9 Type 2 diabetes mellitus without complications; N40.0 Benign prostatic hyperplasia without lower urinary tract symptoms; N32.81 Overactive bladder; B19.20 Unspecified viral hepatitis C without hepatic coma; M54.5 Low back pain; G47.9 Sleep disorder, unspecified; E03.9 Hypothyroidism, unspecified; M19.90 Unspecified osteoarthritis, unspecified site; K64.4 Residual hemorrhoidal skin tags; Z65.3 Problems related to other legal circumstances; Z63.72 Alcoholism and drug addiction in family; Z72.89 Other problems related to lifestyle; Z79.4 Long term (current) use of insulin